=== PATIENT | male | born 1990 | race Hispanic/Latino ===

== ENCOUNTER 2018-08-06 09:54 | Emergency (ER) | payer OTHER ==
[2018-08-06 10:12] VITALS: TEMP 98.8
[2018-08-06 11:10] VITALS: BP 137/90; PULSE 91; RESP 18; O2SAT 98
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
== END 2018-08-06 11:09 | disposition home or self-care (01) ==
LOC: C.ER 09:54
DX: S20.219A Contusion of unspecified front wall of thorax, initial encounter (principal); V49.40XA Driver injured in collision with unspecified motor vehicles in traffic accident, initial encounter